=== PATIENT | female | born 1960 | race Caucasian/White ===

== ENCOUNTER 2025-07-30 19:05 | Inpatient (IN) | payer OTHER ==
[~2025-07-30] VITALS: Ht 175.3 cm; Wt 77.1 kg
[2025-07-30 03:25] VITALS: PULSE 110
[2025-07-30 19:46] LABS: Hematocrit 31.7 % (36.0-46.0); Hemoglobin 10.4 g/dL (12.2-16.2); Mean Corpuscular Hemoglobin 30.7 pg (28.0-32.0); Mean Corpuscular Volume 93.4 fL (80.0-100.0); Nucleated Red Blood Cells % 0.1 %
--- NOTE | 2025-07-30 19:48 | ED.PDOC ---
HPI Comments 64-year-old female who came to ER for shortness of breath. Patient does have history of lupus and AFib. Claims there is recent medication changes done by urgent care. 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: Denies all 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 COUNSELOR Hx Family History Family History: Reviewed,noncontributory to illness Social History Smoker: Non-Smoker Alcohol: Denies ETOH Use Drugs: Denies Drug Use Lives In: Home Constitutional: denies: chills, diaphoresis, fatigue, fever, malaise, sweats, weakness, others EENTM: denies: blurred vision, double vision, ear bleeding, ear discharge, ear drainage, ear pain, ear ringing, eye pain, eye redness, hearing loss, mouth pain, mouth swelling, nasal discharge, nose bleeding, nose congestion, nose pain, photophobia, tearing, throat pain, throat swelling, voice changes, others Respiratory: reports: shortness of breath; denies: cough, hemoptysis, orthopnea, SOB at rest, SOB with excertion, stridor, wheezing, others Cardiovascular: reports: palpitations; denies: chest pain, dizzy spells, diaphoresis, Dyspnea on exertion, edema, irregular heart beat, left arm pain, lightheadedness, PND, syncope, others Gastrointestinal: denies: abdomen distended, abdominal pain, blood streaked bowels, constipated, diarrhea, dysphagia, difficulty swallowing, hematemesis, melena, nausea, poor appetite, poor fluid intake, rectal bleeding, rectal pain, vomiting, others Genitourinary: denies: abnormal vagina bleeding, burning, dyspareunia, dysuria, flank pain, frequency, hematuria, incontinence, pain, , vagina discharge, urgency, others Neurological: denies: dizziness, fainting, headache, left sided numbness, left sided weakness, numbness, paresthesia, pre-existing deficit, right sided num bness, right sided weakness, seizure, speech problems, tingling, tremors, weakness, others Musculoskeletal: denies: back pain, gout, joint pain, joint swelling, muscle pain, muscle stiffness, neck pain, others Integumetry: denies: bruises, change in color, change in hair/nails, dryness, laceration, lesions, lumps, rash, wounds, others Allergic/Immunocompromised: denies: Difficulty Healing, Frequent Infections, Hives, Itching, others Hematologic/Lymphatic: denies: anemia, blood clots, easy bleeding, easy bruising, swollen glands, others Endocrine: denies: excessive hunger, excessive sweating, excessive thirst, excessive urination, flushing, intolerance to cold, intolerance to heat, unexplained weight gain, unexplained weight loss, others Psychiatric: denies: anxiety, bipolar disorder, depression, hopeless, panic disorder, schizophrenia, sleepless, suicidal, others Physical Exam General Appearance: No Apparent Distress, Normal HEENT: Normal ENT Inspection, Pharynx Normal, TMs Normal Neck: Full Range of Motion, Non-Tender, Normal, Normal Inspection Respiratory: Chest Non-Tender, Lungs Clear, No Accessory Muscle Use, No Respiratory Distress, Normal Breath Sounds Cardiovascular: No Edema, No JVD, No Murmur, No Gallop, Normal Peripheral Pulses, Regular Rate/Rhythm Breast Exam: Deferred Gastrointestinal: No Organomegaly, Non Tender, No Pulsatile Mass, Normal Bowel Sounds, Soft Genitalia: Deferred Pelvic: Deferred Rectal: Deferred Extremities: No calf tenderness, Normal capillary refill, Normal inspection, Normal range of motion, Non-tender, No pedal edema Musculoskeletal : Apperance: Normal Neurologic: Alert, snap attacher II-XII nml as Tested, No Motor Deficits, Normal Affect, Normal Mood, No Sensory Deficits Cerebellar Function: Normal Reflexes: Normal Skin: Dry, Normal Color, Warm Lymphatic: No Adenopathy EKG EKG : Pulse Rate (adult): 107 Cardiac Rhythm: Afib Was a procedure done? Was a procedure done?: No CP Differential Dx Differential Diagnosis: A-fib, Angina, Anxiety / Panic Attack Differential Diagnosis: Angina, Chest Wall Pain, Costochondritis, Esophageal reflux/spasm X-Ray, Labs, Meds, VS Vital Signs Date Time Temp Pulse Resp B/P (MAP) Pulse Ox O2 Delivery O2 Flow Rate FiO2 10/18/25 19:48 107 07/30/25 19:28 107 07/30/25 19:20 98.7 96 22 118/91 94 98.7 Lab Test 07/30/25 20:42 07/30/25 19:36 Range/Units Troponin I High Sensitivity 101 *H 93 *H </=34 ng/L White Blood Count 6.8 4.4-10.8 10^3/uL Red Blood Count 3.39 L 4.0-5.20 10^6/uL Hemoglobin 10.4 L 12.2-16.2 g/dL Hematocrit 31.7 L 36.0-46.0 % Mean Corpuscular Volume 93.4 80.0-100.0 fL Mean Corpuscular Hemoglobin 30.7 28.0-32.0 pg Mean Corpuscular Hemoglobin Concent 32.9 32.0-36.0 g/dL Red Cell Distribution Width 17.8 H 11.8-14.3 % Platelet Count 88 L 140-450 10^3/uL Mean Platelet Volume 8.8 6.9-10.8 fL Neutrophils (%) (Auto) 74.8 37.0-80.0 % Lymphocytes (%) (Auto) 16.0 10.0-50.0 % Monocytes (%) (Auto) 7.9 0.0-12.0 % Eosinophils (%) (Auto) 0.6 0.0-7.0 % Basophils (%) (Auto) 0.7 0.0-2.0 % Neutrophils # (Auto) 5.1 1.6-8.6 10 ^3/uL Lymphocytes # (Auto) 1.1 0.4-5.4 10 ^3/uL Monocytes # (Auto) 0.5 0-1.3 10 ^3/uL Eosinophils # (Auto) 0 0-0.8 10 ^3/uL Basophils # (Auto) 0 0-0.2 10 ^3/uL Nucleated Red Blood Cells 0.1 % Sodium Level 139 136-145 mmol/L Potassium Level 3.9 3.5-5.1 mmol/L Chloride Level 109 H 98-107 mmol/L Carbon Dioxide Level 19 L 20-31 mmol/L Anion Gap 11 5-15 Blood Urea Nitrogen 13 9-23 mg/dL Creatinine 1.02 0.550-1.02 mg/dL Glomerular Filtration Rate Calc 61 >90 mL/min BUN/Creatinine Ratio 12.7 10.0-20.0 Serum Glucose 121 H 74-106 mg/dL Calcium Level 8.8 8.7-10.4 mg/dL Magnesium Level 2.0 1.6-2.6 mg/dL Total Bilirubin 1.3 H 0.2-1.0 mg/dL Aspartate Amino Transferase (AST) 32 13-40 U/L Alanine Aminotransferase (ALT) 22 7-40 U/L Alkaline Phosphatase 88 46-116 U/L B-Type Natriuretic Peptide 524.20 0-100 pg/mL Total Protein 7.3 5.7-8.2 g/dL Albumin 3.9 3.2-4.8 g/dL Time of 1ST Reevaluation: 19:44 Reevaluation 1ST: Unchanged Patient Education/Counseling: Diagnosis, Treatment Family Education/Counseling: No Family Present SEPSIS Sepsis Screen Date sepsis recognized/suspect: Jul 30, 2025 Time Sepsis recognized/suspect: 1923 Recent Procedure: No On Antibiotic Therapy: No Respiratory Rate >20: No Heart Rate >90: Yes Temp<36 C (96.8 F) or >38.3 C: No SBP <90 or MAP <65 mmHG: No New Acute Mental Status Change: No Is the patient on CPAP, BIPAP,: No Physician Orders Electrocardigram (07/30/25 19:20) Troponin-I Hs (07/30/25 22:20) Chest Xray 1 View (07/30/25 19:20) Vital Signs Date Time Temp Pulse Resp B/P (MAP) Pulse Ox O2 Delivery O2 Flow Rate FiO2 07/30/25 19:48 107 07/30/25 19:28 107 07/30/25 19:20 98.7 96 22 118/91 94 98.7 Laboratory Tests Test 07/30/25 19:36 White Blood Count 6.8 10^3/uL (4.4-10.8) Departure 1 Departure Time of Disposition: 21:47 Impression: Primary Impression: New onset atrial fibrillation Additional Impressions: Congestive heart failure Acute coronary syndrome Disposition: ADMITTED INPATIENT Admit to: Tele Condition: Guarded Comments 64-year-old female presents with palpitations and shortness of breath. Patient noted to be in atrial fibrillation. She does not have a history of this. Her troponins are slightly elevated. Her BNP is elevated. Patient was given aspirin and Lasix and metoprolol. Patient will need to be admitted for supportive care and further workup. Critical Care Note Critical Care Time?: Yes (35 min-critical care time only) Critical care comment: Total critical care time: Approximately 36 minutes Due to a high probability of clinically significant, life threatening deterioration, the patient required my highest level of preparedness to intervene emergently and I personally spent this critical care time directly and personally managing the patient. This critical care time included obtaining a history; examining the patient; pulse oximetry; ordering and review of studies; arranging urgent treatment with development of a management plan; evaluation of patient's response to treatment; frequent reassessment; and, discussions with other providers. This critical care time was performed to assess and manage the high probability of imminent, life-threatening deterioration that could result in multi-organ failure. It was exclusive of separately billable procedures and treating other patients. Stability Stability form required: No Heart Score Heart Score: Heart Score Response (Comments) Value History Moderate Suspicious 1 EKG Repolarization Disturb 1 Age >65 2 Risk Factors >3 or Hx ASHD 2 Troponin Normal limit 0 Total 6 I personally scribed for GREGORY HOWARD MD ([email or web address]) on 07/30/25 at 19:48. Electronically submitted by Oscar Gipson ([email or web address]). GREGORY HOWARD MD Jul 30, 2025 19:48
[2025-07-30 20:01] LABS: Alanine Aminotransferase 22 U/L (7-40); Alkaline Phosphatase 88 U/L (46-116); Anion Gap 11 (5-15); BUN/Creatinine Ratio 12.7 (10.0-20.0); Blood Urea Nitrogen 13 mg/dL (9-23); Calcium 8.8 mg/dL (8.7-10.4); Magnesium 2.0 mg/dL (1.6-2.6); Potassium 3.9 mmol/L (3.5-5.1); Sodium 139 mmol/L (136-145); Total Protein 7.3 g/dL (5.7-8.2)
[2025-07-30 20:02] LABS: Albumin 3.9 g/dL (3.2-4.8)
--- NOTE | 2025-07-30 20:03 | DVH ---
CHEST RADIOGRAPH Indication: SOB Technique: Single frontal view of the chest was obtained Comparison: None FINDINGS: Lines and Tubes: None Lungs: Diffuse interstitial prominence. Left lower lung zone opacification with obscuration of the l eft hemidiaphragm. No pneumothorax. Cardiomediastinal contours: [id number] cardiomegaly Bones: No acute osseous abnormality. IMPRESSION: Cardiomegaly with findings suggestive of congestive heart failure small left-sided pleural effusion. Underlying infectious process can not be excluded.
[2025-07-30 20:11] LABS: Bilirubin, Total 1.3 mg/dL (0.2-1.0); Carbon Dioxide 19 mmol/L (20-31); Chloride 109 mmol/L (98-107); Glucose 121 mg/dL (74-106)
[2025-07-30 22:00] VITALS: RESP 18; O2SAT 98
[2025-07-30] MEDS: METOPROLOL TARTRATE 1MG/1ML-5ML VIAL IV SCH (22:00)
[2025-07-30] MEDS: FUROSEMIDE 20 MG/2 ML VIAL IV ONE (23:15)
[2025-07-30] MEDS ORDERED: MORPHINE SULFATE INJ 2 MG/ml SYRG IV PRN (23:30)
[2025-07-30] MEDS ORDERED: ONDANSETRON HCL 4 MG/2 ML VIAL IV PRN (23:30)
[2025-07-30] MEDS ORDERED: NITROGLYCERIN 0.4 MG SL TAB SL PRN (23:30)
[2025-07-31] VITALS (9 sets, daily range): BP systolic 133–161; BP diastolic 102–119; PULSE 20–155; RESP 16–20; TEMP 98.1–105; O2SAT 93–98
[2025-07-31] MEDS: ACETAMINOPHEN 325 MG TAB PO PRN (00:25)
[2025-07-31] MEDS: AMIODARONE 360mg/200mL PREMIX 200 ML IV ONE (00:25)
--- NOTE | 2025-07-31 01:37 | DVHHP2 ---
Admitting Diagnosis: CHF, A fib with RVR History of Present Illness History Source: Patient Exam Limitations: No limitations HPI Mrs. Carmel Camara is a 64-year-old female with a history of Lupus , atrial fibrillation who presents with shortness of breath. Claims there is recent medi cation changes done by urgent care. She has been experiencing episodes of shortness of breath and palpitations for the past few days, which progressively worsened and persisted. Patient ED workup Na 139, K 3.9, BUN 13/1.02, Troponin 93, 101, BNP 524, CXR: Cardiomegaly, CHF , Left sided pleural effusion. Patient denies any chest pain, dizziness, nausea, vomiting, fevers, chills. Patient admitted for further evaluation and treatment. Home Meds Reported Medications Mycophenolate Mofetil (Cellcept) 500 Mg Tab, 500 MG PO, TAB 07/31/25 Insulin Degludec (Tresiba) 100 Unit/Ml Inj, 10 UNIT SC DAILY, INJ 07/31/25 Rivaroxaban (XARELTO) 20 Mg Tab, 20 MG PO DAILY, TAB 07/31/25 Losartan Potassium (Losartan Potassium) 25 Mg Tab, 25 MG PO DAILY for 30 Days, MG 07/31/25 Atorvastatin Calcium (ATORVASTATIN CALCIUM) 10 Mg Tab, 1 TAB PO DAILY, #30 TAB 5 Refills 07/31/25 Glipizide (Glipizide) 10 Mg Tab, 10 MG PO DAILY, MG 07/31/25 Diltiazem Hcl (Diltiazem Hcl) 60 Mg Tab, 240 MG PO DAILY, MG 07/31/25 Past Medical History Cardiac: AFIB Pulmonary: No pertinent Hx Central Nervous System: No pertinent Hx GI: No pertinent Hx Hemotology/Oncology: No pertinent Hx Hepatobiliary: No pertinent Hx Psychiatric: No pertinent Hx Musculoskeletal: No pertinent Hx Rheumotologic: SLE Infectious Disease: No peritnent Hx ENT: No pertinent Hx Renal/: No pertinent Hx Endocrine: No pertinent Hx Dermatology: No pertinent Hx Smoker: No Hx (Negative) Alocohol: None Drugs: None Lives with: With family Domestic Violence: Neg Review of Systems Constitutional: No symptom reported Ears, Nose, & Throat: No symptom reported Eyes: No symptom reported Pulmonary/Respiratory: Dyspnea Cardiovascular: Palpitations Gastrointestinal: No symptom reported Genitourinary: No symptom reported Musculoskeletal: No symptom reported Skin: No symptom reported Psychiatric: No symptom reported Endocrine: No symptom reported Hemotologic/Lymphatic: No symptom reported H&P Exam Vital Signs Vital Signs Date Time Temp Pulse Resp B/P (MAP) Pulse Ox O2 Delivery O2 Flow Rate FiO2 07/30/25 23:15 145/105 07/30/25 19:48 107 07/30/25 19:20 98.7 22 94 98.7 General Appeara: Well developed, Well nourished, Normal Appearance Head Exam: Normal inspection Neck Exam: Normal inspection, Non-tender, Normal alignment Eye Exam: bilateral eye Normal inspection, bilateral eye PERRL, bilateral eye EOMI Ear Exam: bilateral ear Auricle normal, bilateral ear Canal normal Nasal Exam: Normal inspection Mouth: Normal Inspection Pulmonary/Respiratory: Normal inspection, Chest non-tender, Other (Diminished breath sounds bilateraly ) Cardiovascular/Chest: Edema (BLE), Tachycardia, Irregularly irregular Peripheral Pulses: 2+ dorsalis pedis (R), 2+ dorsalis pedis (L), 2+ Radial (R), 2+ Radial (L) Abdominal Exam: Normal bowel sounds, Soft Legs: bilateral leg swelling (+2 pitting edema) 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, Normal speech, PERRL Motor/Sensory: Normal sensory function, Normal motor function Neuro/Mental St: Alert, Oriented Appearance: Appropriate appearance, Appropriate insight Eye contact/ Speech: Cooperative, Good eye contact, Normal speech Thoughts/Psych: Normal thought pattern Skin Exam: Normal inspection, Normal color, Warm/dry SEPSIS Sepsis Screen Date sepsis recognized/suspect: Jul 30, 2025 Time Sepsis recognized/suspect: 1923 Recent Procedure: No On Antibiotic Therapy: No Respiratory Rate >20: No Heart Rate >90: Yes Temp<36 C (96.8 F) or >38.3 C: No SBP <90 or MAP <65 mmHG: No New Acute Mental Status Change: No Is the patient on CPAP, BIPAP,: No Physician Orders Electrocardigram (07/30/25 19:20) Chest Xray 1 View (07/30/25 19:20) Admit (07/30/25 23:18) * Cardiology Consult (07/30/25 23:18) Echo 2d Mode Cardiac Dop (07/30/25 23:18) Troponin-I Hs (07/31/25 06:00) Troponin-I Hs (07/31/25 14:00) Cardiac Diet-2gna,Lofat,Lochol (07/31/25 Breakfast) Full Code (07/30/25:18) Maintain Fluid Restrictions QSHIFT (07/30/25 23:18) Urinalysis (07/30/25:18) Strict I & O QSHIFT (07/30/25 23:18) Nitroglycerin Sublingual (Ntrostat Subli (07/30/25 23:30) Morphine Sulfate Injection (07/30/25 23:30) Stat Ekg For Chest Pain (07/30/25:18) Notify Md Of Changes From Base (07/30/25:18) Human Capital Analyst For 24 Hours (07/30/25 23:18) Emergency Dysrhythmia Protocol (07/30/25:18) Rhythm Strips Once Every Shift (07/30/25 23:18) Oxygen By Nasal Cannula (07/30/25 23:18) Basic Metabolic Panel (07/31/25 05:00) Basic Metabolic Panel (08/01/25 05:00) Basic Metabolic Panel (08/02/25 05:00) Mycophenolate Mofetil (Cellcept) (07/31/25 10:00) Amiodarone 360mg/200ml Premix (Nexterone (07/30/25 23:30) Amiodarone 360mg/200ml Premix (Nexterone (07/31/25 05:30) Rivaroxaban Tablet (Xarelto Tablet) (07/31/25 18:00) Losartan Tablet (Cozaar Tablet) (07/31/25 10:00) Atorvastatin (Lipitor) (07/31/25 10:00) Glipizide Tablet (Glucotrol Tablet) (07/31/25 10:00) Acetaminophen Tablet (Tylenol Tablet) (07/30/25 23:30) Ondansetron Hcl (Zofran) (07/30/25 23:30) Furosemide Injection (Lasix Injection) (07/31/25 10:00) Vital Signs Date Time Temp Pulse Resp B/P (MAP) Pulse Ox O2 Delivery O2 Flow Rate FiO2 07/30/25 23:15 145/105 07/30/25 19:48 107 07/30/25 19:28 107 07/30/25 19:20 98.7 96 22 118/91 94 98.7 Laboratory Tests Test 07/30/25 19:36 White Blood Count 6.8 10^3/uL (4.4-10.8) Medications Medications Dose Ordered Sig/Giana Route Start Time Stop Time Status Last Admin Dose Admin Acetaminophen 650 mg Q6HPRN PRN PO 07/30/25 23:30 07/31/25 00:25 650 MG Amiodarone HCL/ Dextrose 200 ml @ 33.33 mls/ hr ONCE ONCE IV 07/30/25 23:30 07/31/25 05:30 07/31/25 00:25 33.33 MLS/HR Furosemide 20 mg ONCE ONCE IV 07/30/25 22:00 07/30/25 22:01 DC 07/30/25 23:15 20 MG Labs/Xrays Labs Test 07/30/25 22:55 07/30/25 21:46 07/30/25 19:36 Range/Units Troponin I High Sensitivity 103 *H </=34 ng/L POC Glucose 113 H 70-106 mg/dl White Blood Count 6.8 4.4-10.8 10^3/uL Red Blood Count 3.39 L 4.0-5.20 10^6/uL Hemoglobin 10.4 L 12.2-16.2 g/dL Hematocrit 31.7 L 36.0-46.0 % Mean Corpuscular Volume 93.4 80.0-100.0 fL Mean Corpuscular Hemoglobin 30.7 28.0-32.0 pg Mean Corpuscular Hemoglobin Concent 32.9 32.0-36.0 g/dL Red Cell Distribution Width 17.8 H 11.8-14.3 % Platelet Count 88 L 140-450 10^3/uL Mean Platelet Volume 8.8 6.9-10.8 fL Neutrophils (%) (Auto) 74.8 37.0-80.0 % Lymphocytes (%) (Auto) 16.0 10.0-50.0 % Monocytes (%) (Auto) 7.9 0.0-12.0 % Eosinophils (%) (Auto) 0.6 0.0-7.0 % Basophils (%) (Auto) 0.7 0.0-2.0 % Neutrophils # (Auto) 5.1 1.6-8.6 10 ^3/uL Lymphocytes # (Auto) 1.1 0.4-5.4 10 ^3/uL Monocytes # (Auto) 0.5 0-1.3 10 ^3/uL Eosinophils # (Auto) 0 0-0.8 10 ^3/uL Basophils # (Auto) 0 0-0.2 10 ^3/uL Nucleated Red Blood Cells 0.1 % Sodium Level 139 136-145 mmol/L Potassium Level 3.9 3.5-5.1 mmol/L Chloride Level 109 H 98-107 mmol/L Carbon Dioxide Level 19 L 20-31 mmol/L Anion Gap 11 5-15 Blood Urea Nitrogen 13 9-23 mg/dL Creatinine 1.02 0.550-1.02 mg/dL Glomerular Filtration Rate Calc 61 >90 mL/min BUN/Creatinine Ratio 12.7 10.0-20.0 Serum Glucose 121 H 74-106 mg/dL Calcium Level 8.8 8.7-10.4 mg/dL Magnesium Level 2.0 1.6-2.6 mg/dL Total Bilirubin 1.3 H 0.2-1.0 mg/dL Aspartate Amino Transferase (AST) 32 13-40 U/L Alanine Aminotransferase (ALT) 22 7-40 U/L Alkaline Phosphatase 88 46-116 U/L B-Type Natriuretic Peptide 524.20 0-100 pg/mL Total Protein 7.3 5.7-8.2 g/dL Albumin 3.9 3.2-4.8 g/dL Assessment/Plan Problem List: (1) Atrial fibrillation with RVR (2) Congestive heart failure (3) Acute coronary syndrome Plan This is a 64 yo female with known history of Lupus, Atrial fibrillation on Xarelto who presents to the hospital with dyspnea and palpitations. Patient found to have 1. CHF 2. A fib with RVR 3. Acute coronary syndrome 4. SLE Plan Admit Telemetry Cardiology consultation, 2D echocardiogram, serial troponin levels, hold aspirin d/t low platelets , statin IV diuresis, Fluid Restriction, strict I&O's Reconcile and continue home medications Monitor electrolytes replenish as needed Discussed all above with patient and patient , both verbalized agreement and understanding of care plan. All questions were answered. Discussed with supervising MD. 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 Patient's chart is reviewed and evaluated by me this afternoon. I agree with the nurse practitioner's evaluation, documentation, assessment and care plan as outlined. SIVAKUMAR BAUMANNP Jul 31, 2025 01:37 TRACEE MACHADO MD Jul 31, 2025 16:33
[2025-07-31] MEDS ORDERED: INSU100I33 SC (02:05)
[2025-07-31] MEDS ORDERED: MYCO500T PO (02:05)
[2025-07-31] MEDS ORDERED: LOSA-533 PO (02:05)
[2025-07-31] MEDS ORDERED: RIVA20TA PO (02:05)
[2025-07-31] MEDS ORDERED: ATOR10TA52 PO (02:05)
[2025-07-31] MEDS ORDERED: DILT60TA PO (02:05)
[2025-07-31] MEDS ORDERED: GLIP10TA9 PO (02:05)
[2025-07-31] MEDS: AMIODARONE 360mg/200mL PREMIX 200 ML IV SCH (05:54)
[2025-07-31 06:37] LABS: Urine Protein, UAD Negative (Negative)
[2025-07-31 07:46] LABS: Chloride 106 mmol/L (98-107); Potassium 3.7 mmol/L (3.5-5.1); Sodium 140 mmol/L (136-145)
[2025-07-31 07:47] LABS: Anion Gap 14 (5-15); Calcium 8.9 mg/dL (8.7-10.4); Carbon Dioxide 20 mmol/L (20-31)
[2025-07-31 07:52] LABS: BUN/Creatinine Ratio 13.6 (10.0-20.0); Blood Urea Nitrogen 15 mg/dL (9-23)
[2025-07-31 07:56] LABS: Glucose 113 mg/dL (74-106)
[2025-07-31] MEDS: MYCOPHENOLATE 500 MG TAB PO SCH (10:00)
[2025-07-31] MEDS ORDERED: LOSARTAN POTASSIUM 25 MG TAB PO SCH (10:00)
[2025-07-31] MEDS ORDERED: FUROSEMIDE 20 MG/2 ML VIAL IV SCH (10:00)
[2025-07-31] MEDS: ATORVASTATIN 20 MG TAB PO SCH (10:00)
[2025-07-31] MEDS: glipiZIDE 5 MG TAB PO SCH (10:00)
--- NOTE | 2025-07-31 15:45 | DVHSR ---
APPROVED REPORT EXAM: Two-dimensional and M-mode echocardiogram with Doppler and color Doppler. Blood Pressure: 133/102 mmHg INDICATION CHF RISK FACTORS Height: 5'9", Weight: 167 DIMENSIONS LVDd5.1 (3.8-5.7cm)LA (2D)5.5 (1.9-4.0cm)Aortic Root3.3 (2.0-3.7cm) LVDs4.0 (2.5-4.0cm)LA (MM) (1.9-4.0cm)Aortic Cusp Exc1.7 (1.5-2.0cm) EF (%) 45.0 (55-70%)Rt. Atrium5.0 (1.9-4.0cm)Asc. Aorta cm IVSd1.2 (0.7-1.1cm)RV (D)5.3 (1.8-2.4cm) PWd1.3 (0.7-1.1cm) Mitral Valve MitralMitral Stenosis E wave1.87m/sMV Mean GR.mmHg E/A ratio0.02D MVAcm2 Aortic Valve Aortic ValveAortic Stenosis V10.81m/Cynthia Mean GR.3mmHg V21.32m/Cynthia Peak GR.7mmHg LVOT Diameter1.9 (1.8-2.4cm)Doppler AVA1.74cm2 Pulmonic Valve V20.87m/s Tricuspid Valve TR Velocity3.53m/s [id number] Conclusion Atrial fibrillation. Biatrial enlargement. Concentric LVH. Aortic root enlargement. Mild thickening of the anterior mitral leaflet. Mild calcification of the posterior mitral leaflet t ip. Diminished excursion. Left ventricular function is diminished. EF is about 25% with global hypokinesis. Doppler reveals severe MR. Mild pulmonic insufficiency. Moderate tricuspid regurgitation. Right ve ntricular systolic pressure of58 mmHg consistent with severe pulmonary hypertension. Small pericardial effusion not hemodynamically significant.
[2025-07-31] MEDS ORDERED: DEXTROSE (50%) 50ML SYRG IV PRN (16:45)
[2025-07-31] MEDS: ACCU-CHEK COMFORT CURVE STRIP VI SCH (17:17)
[2025-07-31] MEDS: InsuLIN REG 1unit/0.01ml Soln (100units/ml) SC SCH (17:17)
[2025-07-31] MEDS: RIVAROXABAN 20 MG TAB PO SCH (18:00)
[2025-07-31] MEDS: HYALURONIDASE 150 UNIT/1 ML SUBCUT ONE (19:10)
[2025-07-31] MEDS: LOSARTAN POTASSIUM 25 MG TAB PO SCH (21:16)
[2025-07-31] MEDS: FUROSEMIDE 20 MG/2 ML VIAL IV SCH (21:17)
[2025-08-01] VITALS (8 sets, daily range): BP systolic 117–158; BP diastolic 85–102; PULSE 63–134; RESP 15–22; TEMP 97.9–98.6; O2SAT 93–97
[2025-08-01 06:33] LABS: Chloride 104 mmol/L (98-107); Potassium 3.8 mmol/L (3.5-5.1); Sodium 138 mmol/L (136-145)
[2025-08-01 06:34] LABS: Anion Gap 14 (5-15)
[2025-08-01 06:35] LABS: Calcium 9.1 mg/dL (8.7-10.4)
[2025-08-01 06:37] LABS: Carbon Dioxide 20 mmol/L (20-31)
[2025-08-01 06:39] LABS: BUN/Creatinine Ratio 10.1 (10.0-20.0); Blood Urea Nitrogen 13 mg/dL (9-23)
[2025-08-01 06:42] LABS: Glucose 127 mg/dL (74-106)
--- NOTE | 2025-08-01 10:45 | DVHINCON2 ---
DATE OF CONSULTATION: 07/31/2025 CARDIOLOGY CONSULTATION REFERRING PHYSICIAN: ____. CONSULTING PHYSICIAN: Jim Oviedo MD INDICATION: Atrial fibrillation. HISTORY OF PRESENT ILLNESS: The patient is a 64-year-old female, with history of lupus, history of DVT and on anticoagulation, hypertension, AFib, who presented to the hospital with complaints of worsening shortness of breath and palpitation. In the ER, she was noted to be in AFib with RVR, heart rate in the 130s-140s. The patient on amiodarone drip with heart rate better controlled; however, not optimal. Denied any chest pain. The patient states that she has been compliant with home medication. PAST MEDICAL HISTORY: * SLE. * Atrial fibrillation. * CHF. * Hypercoagulable state. * DVT. MEDICATIONS: Per med rec. ALLERGIES: No known drug allergies. PHYSICAL EXAMINATION: GENERAL: Alert and awake, in no form of cardiopulmonary distress. VITAL SIGNS: Blood pressure 139/100, pulse 105, O2 saturation 96%. HEENT: No carotid bruits. No jugular venous distention. CHEST: Bilateral air entry. CARDIOVASCULAR SYSTEM: Precordial and carotid pulses palpable. Normal S1, S2. Regular rate and rhythm. No appreciable gallops or rubs. EXTREMITIES: Trace edema. DIAGNOSTIC DATA: White count 6, hemoglobin 10, platelets 88. Sodium 140, potassium 3.7, creatinine is 1.1. Troponin 1st set 93, 2nd set 103, 3rd set is 129, 4th set is 113. ASSESSMENT AND PLAN: * AFib with RVR. * Decompensated heart failure. * Elevated troponin, likely secondary to above ____. * History of lupus. * History of DVT. * Hypertension. RECOMMENDATIONS: * Continue with IV amiodarone drip for rate control. * Continue anticoagulation therapy. * Monitor electrolytes and renal function closely. * Keep potassium above 4 and magnesium above 2. * Continue with IV diuresis. * Monitor input and output closely. * We will review echo once completed. * Continue telemetry monitoring. Thank you for allowing me to participate in the care of this patient. MD WESLY Jaimes/RAE/SHARRI/CANDICE TID: [id number] RECEIPT: [id number]
[2025-08-01 12:15] LABS: Hematocrit 31.3 % (36.0-46.0); Hemoglobin 10.1 g/dL (12.2-16.2); Mean Corpuscular Hemoglobin 30.4 pg (28.0-32.0); Mean Corpuscular Volume 94.3 fL (80.0-100.0); Nucleated Red Blood Cells % 0.2 %
[2025-08-01 12:24] LABS: Triglycerides 105.0 mg/dL (< 150)
[2025-08-01 12:25] LABS: Magnesium 1.8 mg/dL (1.6-2.6)
[2025-08-01 12:26] LABS: Cholesterol 82.0 mg/dL (< 200)
[2025-08-01 12:27] LABS: HDL Cholesterol 30.0 mg/dL (40-59)
--- NOTE | 2025-08-01 16:13 | DVHPN2 ---
Progress Note - Dictate Date Seen: Aug 01, 2025 Medical Necessity Reason Pt with a Central, PICC or Fol: No Subjective Heart rate is still AFib in the 120s but she is asymptomatic. Echocardiogram shows a moderate to severe mitral valve regurgitation with depressed ejection fraction around 25-35%. vital signs Vital Sign Date Time Temp Pulse Resp B/P (MAP) Pulse Ox O2 Delivery O2 Flow Rate FiO2 08/01/25 13:00 98.2 86 18 150/101 (117) 97 98.2 08/01/25 08:00 Room Air* 0 21 Total Intake and Output 07/31/25 07/31/25 08/01/25 15:00 23:00 07:00 Intake Total 500 ml 640 ml Output Total 500 ml 1000 ml Balance 0 ml -360 ml medications Current Medications Medications Dose Ordered Sig/Giana Route Start Time Stop Time Status Last Admin Dose Admin Nitroglycerin 0.4 mg Q5MINP PRN SL 07/30/25 23:30 Morphine Sulfate 2 mg Q30M PRN IV 07/30/25 23:30 Mycophenolate Mofetil 500 mg BID PO 07/31/25 10:00 08/01/25 10:25 500 MG Amiodarone HCL/ Dextrose 200 ml @ 16.66 mls/ hr Q12H IV 07/31/25 05:30 08/01/25 06:45 16.66 MLS/HR Rivaroxaban 20 mg QPM PO 07/31/25 18:00 Atorvastatin Calcium 10 mg DAILY PO 07/31/25 10:00 08/01/25 10:25 10 MG Glipizide 10 mg DAILY PO 07/31/25 10:00 08/01/25 11:43 10 MG Acetaminophen 650 mg Q6HPRN PRN PO 07/30/25 23:30 08/01/25 10:33 650 MG Ondansetron HCl 4 mg Q6HP PRN IV 07/30/25 23:30 Furosemide 20 mg BID IV 07/31/25 22:00 08/01/25 10:24 20 MG Losartan Potassium 25 mg BID PO 07/31/25 22:00 08/01/25 10:26 25 MG Diagnostic Test (Pha) 1 strip Q6HR 07/31/25 18:00 08/01/25 11:44 1 STRIP Insulin Human Regular Q6HR SC 07/31/25 18:00 Dextrose 50 ml UD PRN IV 07/31/25 16:45 Carvedilol 3.125 mg Q12HR PO 08/01/25 22:00 objective Alert awake oriented x3. Anxious female in bed with family at bedside. HEENT neck supple note aorta. Heart tachycardia S1 plus S2. lungs fair amount without any audible rales or wheezes. Abdomen soft positive bowel sounds nontender. Extremities no edema positive pulses. laboratory and microbiology Laboratory Tests 08/01/25 05:05 Test 08/01/25 05:05 Range/Units Serum Glucose 127 H 74-106 mg/dL Assessment/Plan Mitral valve regurgitation Atrial fibrillation with rapid ventricular response Congestive cardiomyopathy EF 25-35% Anxiety disorder Clinically stable. Pending further recommendations from Cardiology protamine time continue IV amiodarone as she is on as well as anticoagulation. Fluid add low-dose beta-anette today. Distal with the patient/family member at bedside at length regarding the her diagnosis condition and plan of care as well as nurse at bedside. Problems(with codes): (1) Congestive heart failure (2) New onset atrial fibrillation Plan discussed with: TRACEE Bob MD Aug 01, 2025 16:13
--- NOTE | 2025-08-01 18:06 | DVHINCON2 ---
Date Seen: Aug 01, 2025 Referring Physician MD Svetlana Reason for Consultation CHF, elevated trop History of Present Illness This is a 64 year old female patient who presents to emergency room with chief complaint of shortness of breath and palpitations for two days prior to emergency room arrival. Cardiology has been consulted at this time for elevated troponins and congestive heart failure. Initial twelve lead electrocardiogram revealed atrial fibrillation with PVC and prolonged QTc interval. Initial troponin level of 93ng/L with peak level of 129ng/L. The patient denies any chest pain or palpitations at time of assessment. The patient does mention feeling shortness of breath especially on exertion. Significant past medical history includes hypertension, dyslipidemia, atrial fibrillation (on Xarelto), lupus, history of DVT, Raynaud's, type 2 diabetes mellitus and chronic kidney disease. The patient states that she has gotten a referral to see Cardiology in the outpatient setting, but has not had an initial visit yet. Past Medical History Past medical history reviewed. No other significant than mentioned above. Past Surgical History Denies Family History: Patient reports no known family medical history. Family History Family history reviewed. Social History Denies the use of tobacco, alcohol or illicit drugs. Allergies: Coded Allergies: No Known Drug Allergy (Verified Allergy, Unknown, 07/30/25) Home Meds Reported Medications Mycophenolate Mofetil (Cellcept) 500 Mg Tab, 500 MG PO, TAB 07/31/25 Insulin Degludec (Tresiba) 100 Unit/Ml Inj, 10 UNIT SC DAILY, INJ 07/31/25 Rivaroxaban (XARELTO) 20 Mg Tab, 20 MG PO DAILY, TAB 07/31/25 Losartan Potassium (Losartan Potassium) 25 Mg Tab, 25 MG PO DAILY for 30 Days, MG 07/31/25 Atorvastatin Calcium (ATORVASTATIN CALCIUM) 10 Mg Tab, 1 TAB PO DAILY, #30 TAB 5 Refills 07/31/25 Glipizide (Glipizide) 10 Mg Tab, 10 MG PO DAILY, MG 07/31/25 Diltiazem Hcl (Diltiazem Hcl) 60 Mg Tab, 240 MG PO DAILY, MG 07/31/25 Home Meds Home medications reviewed. Current Medications Current Medications Medications (Trade) Dose Ordered Sig/Giana Route PRN Reason Start Time Stop Time Status Last Admin Rivaroxaban (Xarelto Tablet) 20 mg QPM PO 07/31/25 18:00 Furosemide (Lasix Injection) 20 mg BID IV 07/31/25 22:00 08/01/25 16:15 DC 08/01/25 10:24 Losartan Potassium (Cozaar Tablet) 25 mg BID PO 07/31/25 22:00 08/01/25 10:26 Diagnostic Test (Pha) (Accu-Chek Comfort Curve T) 1 strip Q6HR 07/31/25 18:00 08/01/25 11:44 Insulin Human Regular (InsuLIN R) Q6HR SC 07/31/25 18:00 Carvedilol (Coreg Tablet) 3.125 mg Q12HR PO 08/01/25 22:00 Furosemide (Lasix Injection) 20 mg DAILY IV 08/02/25 10:00 Review of Systems Constitutional: No symptom reported Ears, Nose, & Throat: No symptom reported Eyes: No symptom reported Neurological: No symptoms reported Pulmonary/Respiratory: Shortness of breath Cardiovascular: Palpitations Gastrointestinal: No symptom reported Genitourinary: No symptom reported Musculoskeletal: No symptom reported Skin: No symptom reported Psychiatric: No symptom reported Endocrine: No symptom reported Hematologic/Lymphatic: No symptom reported Vital Signs Vital Signs Date Time Temp Pulse Resp B/P (MAP) Pulse Ox O2 Delivery O2 Flow Rate FiO2 08/01/25 17:07 98.6 63 15 134/93 (107) 94 98.6 08/01/25 08:00 Room Air* 0 21 Physical Exam General Appearance: Cooperative. Well-developed. Well-nourished. No acute distress. Pulmonary/Respiratory: Clear, bilateral breaths sounds. Cardiovascular/Chest: Irregularly irregular rate and rhythm. Peripheral Pulses: 2+ Radial (R). 2+ Radial (L). 2+ Pedal (R). 2+ Pedal (L) Abdominal Exam: Normal bowel sounds. Ankle Exam: 2+ pitting edema Lower extremities: 2+ pitting edema Neuro/Mental Status: A/OX4, coherent. Thoughts/Psych: Normal thought pattern. Appropriate mood and affect. Good judgment and insight. Appearance: No acute distress. Skin Exam: Normal inspection. Normal color. Warm and dry. Labs/Diagnostic Data Labs Test 08/01/25 16:03 08/01/25 05:05 07/31/25 14:21 07/31/25 05:50 Range/Units POC Glucose 81 70-106 mg/dl White Blood Count 4.3 #L 4.4-10.8 10^3/uL Red Blood Count 3.32 L 4.0-5.20 10^6/uL Hemoglobin 10.1 L 12.2-16.2 g/dL Hematocrit 31.3 L 36.0-46.0 % Mean Corpuscular Volume 94.3 80.0-100.0 fL Mean Corpuscular Hemoglobin 30.4 28.0-32.0 pg Mean Corpuscular Hemoglobin Concent 32.2 32.0-36.0 g/dL Red Cell Distribution Width 17.9 H 11.8-14.3 % Platelet Count 67 L 140-450 10^3/uL Mean Platelet Volume 10.0 6.9-10.8 fL Neutrophils (%) (Auto) 61.9 37.0-80.0 % Lymphocytes (%) (Auto) 23.5 10.0-50.0 % Monocytes (%) (Auto) 13.2 H 0.0-12.0 % Eosinophils (%) (Auto) 0.5 0.0-7.0 % Basophils (%) (Auto) 0.9 0.0-2.0 % Neutrophils # (Auto) 2.6 1.6-8.6 10 ^3/uL Lymphocytes # (Auto) 1.0 0.4-5.4 10 ^3/uL Monocytes # (Auto) 0.6 0-1.3 10 ^3/uL Eosinophils # (Auto) 0 0-0.8 10 ^3/uL Basophils # (Auto) 0 0-0.2 10 ^3/uL Nucleated Red Blood Cells 0.2 % Sodium Level 138 136-145 mmol/L Potassium Level 3.8 3.5-5.1 mmol/L Chloride Level 104 98-107 mmol/L Carbon Dioxide Level 20 20-31 mmol/L Anion Gap 14 5-15 Blood Urea Nitrogen 13 9-23 mg/dL Creatinine 1.29 H 0.550-1.02 mg/dL Glomerular Filtration Rate Calc 46 >90 mL/min BUN/Creatinine Ratio 10.1 10.0-20.0 Serum Glucose 127 H 74-106 mg/dL Hemoglobin A1c 5.8 H <5.7 % A1C Calcium Level 9.1 8.7-10.4 mg/dL Magnesium Level 1.8 1.6-2.6 mg/dL Triglycerides Level 105 < 150 mg/dL Cholesterol Level 82 < 200 mg/dL LDL Cholesterol 33 < 100 mg/dL HDL Cholesterol 30 L 40-59 mg/dL Thyroid Stimulating Hormone (TSH) 4.86 H 0.55-4.78 uIU/mL Troponin I High Sensitivity 113 *H </=34 ng/L Urine Color Colorless Yellow Urine Clarity Clear Clear Urine pH 5.0 5.0-9.0 Urine Specific [place] 1.007 1.001-1.035 Urine Protein Negative Negative Urine Ketones Negative Negative Urine Blood Trace H Negative /uL Urine Nitrite Negative Negative Urine Bilirubin Negative Negative Urine Urobilinogen Normal Negative mg/dL Urine Leukocyte Esterase Negative Negative /uL Urine RBC <1 0 - 4 /hpf Urine Microscopic WBC < 1 0-5 /HPF Urine Squamous Epithelial Cells Few <5 /hpf Urine Bacteria None seen None Seen /hpf Urine Glucose Normal Normal mg/dL Test 07/30/25 19:36 Range/Units Total Bilirubin 1.3 H 0.2-1.0 mg/dL Aspartate Amino Transferase (AST) 32 13-40 U/L Alanine Aminotransferase (ALT) 22 7-40 U/L Alkaline Phosphatase 88 46-116 U/L B-Type Natriuretic Peptide 524.20 0-100 pg/mL Total Protein 7.3 5.7-8.2 g/dL Albumin 3.9 3.2-4.8 g/dL Assessment De Paco HFrEF, NYHA class III Atrial fibrillation with rapid ventricular response (on Xarelto) NSTEMI Severe mitral regurgitation Moderate tricuspid regurgitation Severe pulmonary hypertension Hypertension Dyslipidemia Lupus Thrombocytopenia Chronic kidney disease Type 2 diabetes mellitus History of DVT Raynaud's Plan/Recommendation We will continue with the following plan/recommendations (Dr. Saldana): Patient was seen and examined at bedside by . Case discussed in detail with . A transthoracic echocardiogram revealed an EF of 25% with global hypokinesis, severe mitral regurgitation, and RVSP 58 mmHg. Initiate guideline directed medical therapy for CHF as tolerated by renal function. Add MRA (spironolactone) with stable potassium and improved renal function. Strict intake and output, daily weights, maintain fluid restriction. Given severe mitral regurgitation, we will recommend that the patient be trans ferred to higher level of care for Mitral Clip evaluation. The patient may need to undergo a transesophageal echocardiogram as well as right and left heart catheterization for which the patient states she does not want to undergo twice. For this reason, patient should be transferred to higher level of care and have a full cardiac workup done. [id number] VASc score: 5 points, HAS-BLED score: 1 point. Continue with DOAC therapy. Continue with the beta-anette for rate control. Continue with antiarrhythmic agent, amiodarone as tolerated. Monitor QTc interval. Repeat EKG in AM.. Continue with blood pressure control and lipid-lowering agent. Continue with close cardiac surveillance. Monitor and notify cardiology team immediately for any ECG changes. Thank you for allowing us to care for this patient. Please call with any questions or concerns. Critical care time spent: 44 minutes This medical document was created using an electronic medical record system with voice recognition software and computerized dictation system. Although this document has been carefully reviewed, there might still be some phonetic and typographical errors. Occasional wrong-word or ``sound-alike substitutions may have occurred due to the inherent limitations of voice recognition software. These areas are purely typographical due to imperfections of the software programs and do not reflect any compromise in the patient's medical care. Please read the chart carefully and recognize, using context, where these substitutions have occurred. Plan discussed with: Patient NYHA Physical activity limitations: Class3(Marked) ordinary Date of Service: Aug 01, 2025 Billing Provider: DEYANIRA FOSTER Cardiology Common Codes: 36918-[id number] INP/OBS CARE (High) Cardiology Consultation Codes: [id number]-[id number] CONSULT <45MIN DEYANIRA FOSTER Aug 01, 2025 18:06
[2025-08-01] MEDS: HYALURONIDASE 150 UNIT/1 ML SUBCUT ONE (19:20)
[2025-08-01] MEDS: AMIODARONE HCL 200 MG TAB PO SCH (22:10)
[2025-08-01] MEDS: CARVEDILOL 3.125 MG TAB PO SCH (22:11)
[2025-08-02] VITALS (7 sets, daily range): BP systolic 116–143; BP diastolic 73–93; PULSE 67–122; RESP 16–19; TEMP 97.6–98.7; O2SAT 94–96
--- NOTE | 2025-08-02 05:04 | ECG ---
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
[2025-08-02 06:20] LABS: Chloride 104 mmol/L (98-107); Potassium 3.9 mmol/L (3.5-5.1); Sodium 138 mmol/L (136-145)
[2025-08-02 06:21] LABS: Anion Gap 14 (5-15); Calcium 9.2 mg/dL (8.7-10.4); Carbon Dioxide 20 mmol/L (20-31)
[2025-08-02 06:27] LABS: BUN/Creatinine Ratio 12.2 (10.0-20.0); Blood Urea Nitrogen 16 mg/dL (9-23); Glucose 110 mg/dL (74-106); Magnesium 1.8 mg/dL (1.6-2.6)
[2025-08-02] MEDS: FUROSEMIDE 20 MG/2 ML VIAL IV SCH (10:00)
[2025-08-02] MEDS: DIGOXIN 0.125 MG TAB PO SCH (10:00)
[2025-08-02] MEDS: EMPAGLIFLOZIN 10 MG TAB PO SCH (10:00)
[2025-08-02] MEDS: DIGOXIN (250MCG/ML) 2 ML AMPULE IV ONE (10:02)
--- NOTE | 2025-08-02 16:03 | DVHPN2 ---
Consult Progress Note Subjective Other Systems: Remains in atrial fibrillation on food and beverage controller Objective vital signs Vital Sign Date Time Temp Pulse Resp B/P (MAP) Pulse Ox O2 Delivery O2 Flow Rate FiO2 08/02/25 13:07 97.6 92 16 124/82 (96) 96 97.6 08/02/25 08:00 Room Air* 0 21 Total Intake and Output 08/01/25 08/01/25 08/02/25 15:00 23:00 07:00 Intake Total 1422 ml 400 ml Balance 1422 ml 400 ml medications Current Medications Medications Dose Ordered Sig/Giana Route Start Time Stop Time Status Last Admin Dose Admin Nitroglycerin 0.4 mg Q5MINP PRN SL 07/30/25 23:30 Morphine Sulfate 2 mg Q30M PRN IV 07/30/25 23:30 Mycophenolate Mofetil 500 mg BID PO 07/31/25 10:00 08/02/25 10:20 500 MG Rivaroxaban 20 mg QPM PO 07/31/25 18:00 08/01/25 18:41 20 MG Atorvastatin Calcium 10 mg DAILY PO 07/31/25 10:00 08/02/25 10:02 10 MG Glipizide 10 mg DAILY PO 07/31/25 10:00 08/01/25 11:43 10 MG Acetaminophen 650 mg Q6HPRN PRN PO 07/30/25 23:30 08/01/25 10:33 650 MG Ondansetron HCl 4 mg Q6HP PRN IV 07/30/25 23:30 Diagnostic Test (Pha) 1 strip Q6HR 07/31/25 18:00 08/02/25 12:12 1 STRIP Insulin Human Regular Q6HR SC 07/31/25 18:00 Dextrose 50 ml UD PRN IV 07/31/25 16:45 Carvedilol 3.125 mg Q12HR PO 08/01/25 22:00 08/02/25 10:01 3.125 MG Furosemide 20 mg DAILY IV 08/02/25 10:00 08/02/25 10:00 20 MG Digoxin 0.125 mg DAILY PO 08/02/25 10:00 Empaglifozin 10 mg DAILY PO 08/02/25 10:00 Amiodarone HCl 200 mg TID PO 08/01/25 22:00 08/02/25 13:55 200 MG Examination: GENERAL:Normal, LUNGS:Normal, CVS:Abnormal (Atrial fibrillation), NEURO:Normal laboratory and microbiology Laboratory Tests 08/02/25 05:22 08/01/25 05:05 Test 08/02/25 05:22 Range/Units Serum Glucose 110 H 74-106 mg/dL Problem List/Assessment/Plan Problem List/Assessment/Plan De Paco HFrEF, NYHA class III Atrial fibrillation with rapid ventricular response (on Xarelto) NSTEMI Severe mitral regurgitation Moderate tricuspid regurgitation Severe pulmonary hypertension Hypertension Dyslipidemia Lupus Thrombocytopenia Chronic kidney disease Type 2 diabetes mellitus History of DVT Raynaud's Plan/Recommendation (Dr. Saldana): Case discussed in detail with . A transthoracic echocardiogram revealed an EF of 25% with global hypokinesis, severe mitral regurgitation, and RVSP 58 mmHg. Continue guideline directed medical therapy for CHF as tolerated by renal function. Add MRA (spironolactone) with stable potassium and improved renal function. Strict intake and output, daily weights, maintain fluid restriction. Given severe mitral regurgitation, we will recommend that the patient be transferred to higher level of care for Mitral Clip evaluation. The patient may need to undergo a transesophageal echocardiogram as well as right and left heart catheterization for which the patient states she does not want to undergo twice. For this reason, patient should be transferred to higher level of care and have a full cardiac workup done. [id number] VASc score: 5 points, HAS-BLED score: 1 point. Continue with DOAC therapy. Continue with the beta-anette for rate control. Continue with antiarrhythmic agent, amiodarone as tolerated. Monitor QTc interval. Continue with blood pressure control and lipid-lowering agent. Continue with close cardiac surveillance. Monitor and notify cardiology team immediately for any ECG changes. Thank you for allowing us to care for this patient. Please call with any questions or concerns. This medical document was created using an electronic medical record system with voice recognition software and computerized dictation system. Although this document has been carefully reviewed, there might still be some phonetic and typographical errors. Occasional wrong-word or ``sound-alike substitutions may have occurred due to the inherent limitations of voice recognition software. These areas are purely typographical due to imperfections of the software programs and do not reflect any compromise in the patient's medical care. Please read the chart carefully and recognize, using context, where these substitutions have occurred. Plan discussed with: Patient, Spouse, Other (Bedside RN) Date of Service: Aug 02, 2025 Billing Provider: DEYANIRA FOSTER Common Visit Codes: [id number] INP/OBS CARE(HIGH) DEYANIRA FOSTER Aug 02, 2025 16:03
--- NOTE | 2025-08-02 16:06 | DVHPN2 ---
Progress Note - Dictate Date Seen: Aug 02, 2025 Medical Necessity Reason Pt with a Central, PICC or Fol: No Subjective Patient's heart rate remains labile with the atrial fibrillation. She is evaluated by Dr. Saldana a top installer recommending transferred to higher level of care for mitral valve clipping. Patient refused IV amiodarone no in the risks and now started on oral amiodarone. Patient is tolerating Coreg. vital signs Vital Sign Date Time Temp Pulse Resp B/P (MAP) Pulse Ox O2 Delivery O2 Flow Rate FiO2 08/02/25 13:07 97.6 92 16 124/82 (96) 96 97.6 08/02/25 08:00 Room Air* 0 21 Total Intake and Output 08/01/25 08/01/25 08/02/25 15:00 23:00 07:00 Intake Total 1422 ml 400 ml Balance 1422 ml 400 ml medications Current Medications Medications Dose Ordered Sig/Giana Route Start Time Stop Time Status Last Admin Dose Admin Nitroglycerin 0.4 mg Q5MINP PRN SL 07/30/25 23:30 Morphine Sulfate 2 mg Q30M PRN IV 07/30/25 23:30 Mycophenolate Mofetil 500 mg BID PO 07/31/25 10:00 08/02/25 10:20 500 MG Rivaroxaban 20 mg QPM PO 07/31/25 18:00 08/01/25 18:41 20 MG Atorvastatin Calcium 10 mg DAILY PO 07/31/25 10:00 08/02/25 10:02 10 MG Glipizide 10 mg DAILY PO 07/31/25 10:00 08/01/25 11:43 10 MG Acetaminophen 650 mg Q6HPRN PRN PO 07/30/25 23:30 08/01/25 10:33 650 MG Ondansetron HCl 4 mg Q6HP PRN IV 07/30/25 23:30 Diagnostic Test (Pha) 1 strip Q6HR 07/31/25 18:00 08/02/25 12:12 1 STRIP Insulin Human Regular Q6HR SC 07/31/25 18:00 Dextrose 50 ml UD PRN IV 07/31/25 16:45 Carvedilol 3.125 mg Q12HR PO 08/01/25 22:00 08/02/25 10:01 3.125 MG Furosemide 20 mg DAILY IV 08/02/25 10:00 08/02/25 10:00 20 MG Digoxin 0.125 mg DAILY PO 08/02/25 10:00 Empaglifozin 10 mg DAILY PO 08/02/25 10:00 Amiodarone HCl 200 mg TID PO 08/01/25 22:00 08/02/25 13:55 200 MG objective Alert awake oriented x3. Anxious female in bed with family at bedside. HEENT neck supple note aorta. Heart tachycardia S1 plus S2. lungs fair amount without any audible rales or wheezes. Abdomen soft positive bowel sounds nontender. Extremities no edema positive pulses. laboratory and microbiology Laboratory Tests 08/02/25 05:22 08/01/25 05:05 Test 08/02/25 05:22 Range/Units Serum Glucose 110 H 74-106 mg/dL Assessment/Plan Mitral valve regurgitation Atrial fibrillation with rapid ventricular response Congestive cardiomyopathy EF 25-35% Anxiety disorder Clinically stable. Once again discussed with the risks benefits alternatives of being on IV amiodarone. At present she wants to be on oral amiodarone not IV. Meantime we will have social Service involved to initiate transferred to higher level of care per Cardiology recommendations. This is once again discussed with the patient and her significant other at bedside. Plan discussed with: Patient, Other TRACEE MACHADO MD Aug 02, 2025 16:06
--- NOTE | 2025-08-02 17:15 | DVH ---
Technique: Real-time ultrasound imaging of the thyroid gland was performed with grayscale and color D oppler. Indication: Mass on neck Comparison: None Findings: Right thyroid lobe measures 3.9 x 1.9 x 1.7 cm. Left thyroid lobe measures 4 x 1.7 by 1.5 cm. Thyroi d isthmus measures 2 mm in thickness. Relatively homogeneous thyroid echotexture There is an echogenic lesion in the midline neck superior to the thyroid measuring 1.5 x 1.0 x 1.4 cm . This does demonstrate some through transmission. There is some punctate internal vascularity. Left thyroid cyst measuring 4 mm Impression: Echogenic circumferential lesion in the midline neck just superior to the thyroid gland measuring 1.5 x 1.4 cm which does demonstrate some internal vascularity raising concern for possible solid compone nt. Recommend MRI of the neck with and without contrast to evaluate and ENT consultation. 4 mm left thyroid cyst
--- NOTE | 2025-08-03 13:09 | DVHDS2 ---
Discharge Summary Date of Admission Jul 30, 2025 at 23:18 Date of Discharge: Aug 02, 2025 Labs/Diagnostic Data: Laboratory Results Test 08/02/25 17:32 08/02/25 05:22 08/01/25 05:05 07/31/25 14:21 POC Glucose 87 mg/dl (70-106) Sodium Level 138 mmol/L (136-145) Potassium Level 3.9 mmol/L (3.5-5.1) Chloride Level 104 mmol/L (98-107) Carbon Dioxide Level 20 mmol/L (20-31) Anion Gap 14 (5-15) Blood Urea Nitrogen 16 mg/dL (9-23) Creatinine 1.31 mg/dL (0.550-1.02) Glomerular Filtration Rate Calc 45 mL/min (>90) BUN/Creatinine Ratio 12.2 (10.0-20.0) Serum Glucose 110 mg/dL (74-106) Calcium Level 9.2 mg/dL (8.7-10.4) Magnesium Level 1.8 mg/dL (1.6-2.6) White Blood Count 4.3 10^3/uL (4.4-10.8) Red Blood Count 3.32 10^6/uL (4.0-5.20) Hemoglobin 10.1 g/dL (12.2-16.2) Hematocrit 31.3 % (36.0-46.0) Mean Corpuscular Volume 94.3 fL (80.0-100.0) Mean Corpuscular Hemoglobin 30.4 pg (28.0-32.0) Mean Corpuscular Hemoglobin Concent 32.2 g/dL (32.0-36.0) Red Cell Distribution Width 17.9 % (11.8-14.3) Platelet Count 67 10^3/uL (140-450) Mean Platelet Volume 10.0 fL (6.9-10.8) Neutrophils (%) (Auto) 61.9 % (37.0-80.0) Lymphocytes (%) (Auto) 23.5 % (10.0-50.0) Monocytes (%) (Auto) 13.2 % (0.0-12.0) Eosinophils (%) (Auto) 0.5 % (0.0-7.0) Basophils (%) (Auto) 0.9 % (0.0-2.0) Neutrophils # (Auto) 2.6 10 ^3/uL (1.6-8.6) Lymphocytes # (Auto) 1.0 10 ^3/uL (0.4-5.4) Monocytes # (Auto) 0.6 10 ^3/uL (0-1.3) Eosinophils # (Auto) 0 10 ^3/uL (0-0.8) Basophils # (Auto) 0 10 ^3/uL (0-0.2) Nucleated Red Blood Cells 0.2 % Hemoglobin A1c 5.8 % A1C (<5.7) Triglycerides Level 105 mg/dL (< 150) Cholesterol Level 82 mg/dL (< 200) LDL Cholesterol 33 mg/dL (< 100) HDL Cholesterol 30 mg/dL (40-59) Thyroid Stimulating Hormone (TSH) 4.86 uIU/mL (0.55-4.78) Troponin I High Sensitivity 113 ng/L (</=34) Test 07/31/25 05:50 07/30/25 19:36 Urine Color Colorless (Yellow) Urine Clarity Clear (Clear) Urine pH 5.0 (5.0-9.0) Urine Specific [place] 1.007 (1.001-1.035) Urine Protein Negative (Negative) Urine Ketones Negative (Negative) Urine Blood Trace /uL (Negative) Urine Nitrite Negative (Negative) Urine Bilirubin Negative (Negative) Urine Urobilinogen Normal mg/dL (Negative) Urine Leukocyte Esterase Negative /uL (Negative) Urine RBC <1 /hpf (0 - 4) Urine Microscopic WBC < 1 /HPF (0-5) Urine Squamous Epithelial Cells Few /hpf (<5) Urine Bacteria None seen /hpf (None Seen) Urine Glucose Normal mg/dL (Normal) Total Bilirubin 1.3 mg/dL (0.2-1.0) Aspartate Amino Transferase (AST) 32 U/L (13-40) Alanine Aminotransferase (ALT) 22 U/L (7-40) Alkaline Phosphatase 88 U/L (46-116) B-Type Natriuretic Peptide 524.20 pg/mL (0-100) Total Protein 7.3 g/dL (5.7-8.2) Albumin 3.9 g/dL (3.2-4.8) Other Laboratory Tests 08/02/25 05:22 08/01/25 05:05 Brief Hx & Hospital Course: Mrs. Carmel Camara is a 64-year-old female with a history of Lupus , atrial fibrillation who presents with shortness of breath. Claims there is recent medication changes done by urgent care. She has been experiencing episodes of shortness of breath and palpitations for the past few days, which progressively worsened and persisted. Patient ED workup Na 139, K 3.9, BUN 13/1.02, Troponin 93, 101, BNP 524, CXR: Cardiomegaly, CHF , Left sided pleural effusion. Patient denies any chest pain, dizziness, nausea, vomiting, fevers, chills. Patient admitted for further evaluation and treatment. She is admitted and evaluated by printing sales representative had echocardiogram. Echocardiogram showed a severe mitral valve regurgitation with a pulmonary hypertension. Patient continued to be in atrial fibrillation with a rapid ventricular response. She refused and noncompliant with the recommendations of continuing IV amiodarone drip per protocol. Patient is started on oral amiodarone. Heart rate is ranging anywhere between 90s to 120s. Patient remained asymptomatic without any complaints of palpitations or chest pain. Mortgage Or Loan Underwriter recommended patient to be transferred to higher level of care for med to valve clipping given her valve disorder with the atrial fibrillation and on compliant with medications. Dr. Saldana Cardiology discussed with the [facility] printing sales representative and they have accepted the patient and being transferred there in stable condition. Operations or Procedures EXAM: Two-dimensional and M-mode echocardiogram with Doppler and color Doppler. Blood Pressure: 133/102 mmHg INDICATION CHF RISK FACTORS Height: 5'9", Weight: 167 DIMENSIONS LVDd 5.1 (3.8-5.7cm) LA (2D) 5.5 (1.9-4.0cm) Aortic Root 3.3 (2.0- 3.7cm) LVDs 4.0 (2.5-4.0cm) LA (MM) (1.9-4.0cm) Aortic Cusp Exc 1.7 (1.5- 2.0cm) EF (%) 45.0 (55-70%) Rt. Atrium 5.0 (1.9-4.0cm) Asc. Aorta cm IVSd 1.2 (0.7-1.1cm) RV (D) 5.3 (1.8-2.4cm) PWd 1.3 (0.7-1.1cm) Mitral Valve Mitral Mitral Stenosis E wave 1.87m/s MV Mean GR. mmHg E/A ratio 0.0 2D MVA cm2 Aortic Valve Aortic Valve Aortic Stenosis V1 0.81m/s AO Mean GR. 3mmHg V2 1.32m/s AO Peak GR. 7mmHg LVOT Diameter 1.9 (1.8-2.4cm) Doppler DENNY 1.74cm2 Pulmonic Valve V2 0.87m/s Tricuspid Valve TR Velocity 3.53m/s RVSP 58mmHg Conclusion Atrial fibrillation. Biatrial enlargement. Concentric LVH. Aortic root enlargement. Mild thickening of the anterior mitral leaflet. Mild calcification of the posterior mitral leaflet tip. Diminished excursion. Left ventricular function is diminished. EF is about 25% with global hypokinesis. Doppler reveals severe MR. Mild pulmonic insufficiency. Moderate tricuspid regurgitation. Right ventricular systolic pressure of58 mmHg consistent with severe pulmonary hypertension. Small pericardial effusion not hemodynamically significant. SIGNED BY: ENDY SALDANA Sr., MD SIGNED DATE/TIME: 07/31/25 4288 Condition at Discharge: Stable Final Diagnosis/Problems List Severe mitral regurgitation requiring mitral clipping, atrial fibrillation with a rapid ventricular response Discharge Disposition: Acute Care Facility Discharge Instruct/Medications Diet: Consistent carbohydrate, Cardiac 2g Na,low cholest Activity: Light activity Medications: See transfer med reconciliation list Scheduled Atorvastatin Calcium (Atorvastatin Calcium), 1 TAB PO DAILY, (Reported) Diltiazem Hcl (Diltiazem Hcl), 240 MG PO DAILY, (Reported) Glipizide (Glipizide), 10 MG PO DAILY, (Reported) Insulin Degludec (Tresiba), 10 UNIT SC DAILY, (Reported) Losartan Potassium (Losartan Potassium), 25 MG PO DAILY, (Reported) Rivaroxaban (Xarelto), 20 MG PO DAILY, (Reported) Miscellaneous Medications Mycophenolate Mofetil (Cellcept), 500 MG PO, (Reported) Discharge Statement: "Patient was advised to return to the ER or call 911 if any headaches, dizziness, shortness of breath, chest pain, abdominal pain, bleeding, fevers, or worsening of medical condition. Patient was counseled about treatment plan, medications, possible side effects, patientverbalized understanding. All questions were answered to the best of my ability. This discharge took greater then 30 minutes in planning, reviewing documentation, counseling the patient, and discussing with other team members." ASSESSMENT ASSESSMENT Assessment Severe mitral regurgitation requiring mitral clipping, atrial fibrillation with a rapid ventricular response TRACEE MACHADO MD Aug 03, 2025 13:09
--- NOTE | 2025-08-04 07:13 | ECG ---
[facility] Test Date: 2025-08-02 Test Time: 08:15:39 Pat Name: MAYNOR CASTANEDA Department: Room: [facility]3T A Gender: F Stiff Neck Loader: LULÚ : 1960 Requested By: DEYANIRA FOSTER Order Number: [id number] Reading MD: Og Saldana Measurements Intervals [place] Rate: 111 P: 0 [place]: 0 QRS: -33 QRSD: 77 T: 0 QT: 415 QTc: 564 Interpretive Statements Atrial fibrillation Inferior infarct, old Probable anteroseptal infarct, old Prolonged QT interval Electronically Signed On 08-08-2025 15:23:22 PDT by Og Saldana Please click the below link to view image of tracing.
== END 2025-08-02 21:50 | disposition short-term general hospital (02) | DRG 280 ==
LOC: ER 19:05 → OVERFLOW 23:18 → TELE-WESTW 07-31 03:20
PROVIDERS: ADMIT Nurse Practitioner Family; ATTEND Nurse Practitioner Family
DX: I48.91 Unspecified atrial fibrillation (principal); I50.23 Acute on chronic systolic (congestive) heart failure; I21.A1 Myocardial infarction type 2; I13.0 Hypertensive heart and chronic kidney disease with heart failure and stage 1 through stage 4 chronic kidney disease, or unspecified chronic kidney disease; I31.39 Other pericardial effusion (noninflammatory); D69.6 Thrombocytopenia, unspecified; E78.5 Hyperlipidemia, unspecified; I07.1 Rheumatic tricuspid insufficiency; I27.20 Pulmonary hypertension, unspecified; I42.0 Dilated cardiomyopathy; N18.9 Chronic kidney disease, unspecified; F41.9 Anxiety disorder, unspecified; E11.22 Type 2 diabetes mellitus with diabetic chronic kidney disease; I73.00 Raynaud's syndrome without gangrene; I05.8 Other rheumatic mitral valve diseases; I35.0 Nonrheumatic aortic (valve) stenosis; M32.9 Systemic lupus erythematosus, unspecified; Z79.01 Long term (current) use of anticoagulants; Z86.718 Personal history of other venous thrombosis and embolism; Z87.891 Personal history of nicotine dependence
CPT/HCPCS: 36415; 71045; 76536; 80048; 80053; 80061; 81001; 82962; 83036; 83735; 83880; 84443; 84484; 85025; 93005; 93306; 96374; 99291; G0378; J3470; J7517